=== PATIENT | female | born 1935 | race Caucasian/White ===

== ENCOUNTER → 2016-09-15 | Outpatient (CLI) | payer MEDICARE, BC ==
--- NOTE | ~2016-09-15 | ECH ---
Transthoracic Echocardiography Report (TTE) Demographics Patient Name LE DAVIS Date of Study 09/15/2016 [place] Patient Number [id number] Visit Number [id number] Date of 1935 Room Number Accession Number [id number] Gender Female Age 81 year(s) Referring Copur Tigre Mercedes Chef Head Michell Priya [facility] Physician Aubrey Santos MD Physician Interpreting Dylan Johnson MD Telephone Order Supervisor Physician Supervising Ordering Physician Jamison Medrano MD/AUDI KAUFMAN Nurse Stress Icu Manager Conclusions Summary Limited exam for left ventricular function. The estimated left ventricular ejection fraction is 60%. Mild left ventricular hypertrophy. Normal right ventricle structure and function. Procedure Type of Study TTE procedure:Echo Limited SF. Procedure Date Date: 09/15/2016 Start: 10:07 AM Technical Quality: Adequate visualization Indications:History of Breast Cancer, Monitoring for Herceptin . Appropriate Use Criteria: 9 Height: 67 inches Weight: 165 pounds BSA: 1.86 m Rhythm: Within normal limits HR: 58 bpm BP: 144/68 mmHg M-Mode/2D Measurements LV Diastolic Dimension: 5.04 cm LV Systolic Dimension: 3.4 cm LV Septum Diastolic: 1.3 cm LV PW Diastolic: 0.93 cm AO Root Dimension: 2.61 cm LA Dimension: 4.24 cm RV Diastolic Dimension: 3.45 cm LA volume: 49.22 ml LA volume index: 26 ml/m LVOT: 1.91 cm RV Base: 3.1 cm RV Mid: 2.3 cm RV Length: 5.8 cm TAPSE: 2.1 cm Doppler Measurements RA Area: 12.67 cm Findings Left Ventricle The left ventricle is normal in size . Mild left ventricular hypertrophy. Right Ventricle Normal right ventricle structure and function. Left Atrium Normal left atrial size. Right Atrium Normal right atrial size. Pericardial Effusion Epicardial fat pad noted. Miscellaneous Visualized portions of the aortic root and ascending aorta appear normal in size. Pleural Effusion No evidence of pleural effusion. Signature
== END | disposition home or self-care (01) ==
LOC: CARD 08-02 10:00
DX: C50.511 Malignant neoplasm of lower-outer quadrant of right female breast (principal); I51.7 Cardiomegaly

== ENCOUNTER → 2017-01-04 | Outpatient (CLI) | payer MEDICARE, BC ==
--- NOTE | ~2017-01-04 | ECH ---
Transthoracic Echocardiography Report (TTE) Demographics Patient Name LE DAVIS Date of Study 01/04/2017 M Patient Number [id number] Visit Number [id number] Date of 1935 Room Number Accession Number [id number] Gender Female Age 81 year(s) Referring Aubrey Santos MD Respiratory Therapy Manager Rachel Navarrete Physician RDCS Physician Interpreting Dylan Johnson MD Associate Store Director Physician Supervising Ordering Physician Jamison Medrano MD/AUDI KAUFMAN Nurse Stress Sales Route Driver Helper Conclusions Contractility Score Summary Normal Left Ventricular contractility was noted. Summary Limited study for ejection fraction. Doppler not performed. The estimated left ventricular ejection fraction is 60%. Normal appearing valves. Procedure Type of Study TTE procedure:Echo Limited SF. Procedure Date Date: 01/04/2017 Start: 02:05 PM Technical Quality: Adequate visualization Indications:History of Breast Cancer, Monitoring for Herceptin . Appropriate Use Criteria: 9 Height: 67 inches Weight: 168 pounds BSA: 1.88 m Rhythm: NSR HR: 60 bpm BP: 133/64 mmHg M-Mode/2D Measurements LV Diastolic Dimension: 5.37 cm LV Systolic Dimension: 4.19 cm LV Septum Diastolic: 0.86 cm LV PW Diastolic: 0.83 cm AO Root Dimension: 3.15 cm LA Dimension: 3.78 cm RV Diastolic Dimension: 3.62 cm LA volume: 54.97 ml LA volume index: 29 ml/m RV Base: 2.9 cm RV Mid: 2.2 cm TAPSE: 1.9 cm Doppler Measurements RA Area: 11.42 cm Findings Left Ventricle Normal left ventricle size and function. Right Ventricle Normal right ventricle structure and function. Left Atrium Normal left atrial size. Right Atrium Normal right atrial size. Mitral Valve Normal mitral valve structure and function. Aortic Valve Normal aortic valve structure and function. Tricuspid Valve Normal tricuspid valve structure and function. Pulmonic Valve Normal pulmonic valve structure and function. Pericardial Effusion No evidence of pericardial effusion. Miscellaneous Visualized portions of the aortic root and ascending aorta appear normal in size. Pleural Effusion No evidence of pleural effusion. Contractility Score LV regional wall motion:(0-Non visualized 1-Normal 2-Hypokinesis 3-Akinesis 4-Dyskinesis 5-Aneurysm) Signature Electronically signed by Dylan Johnson MD([facility] physician) on 01/04/2017 03:17 PM
== END | disposition home or self-care (01) ==
LOC: CARD 13:00
DX: Z51.81 Encounter for therapeutic drug level monitoring (principal); I10 Essential (primary) hypertension; Z85.3 Personal history of malignant neoplasm of breast; Z79.899 Other long term (current) drug therapy